=== PATIENT | male | born 1980 | race Two or more races ===

== ENCOUNTER 2020-09-28 16:47 | Emergency (ER) | payer OTHER ==
[~2020-09-28] VITALS: Ht 177.8 cm; Wt 104.3 kg
[2020-09-28 17:02] VITALS: BP 126/77
[2020-09-28] MEDS ORDERED: PRED50TA PO (17:26)
[2020-09-28] MEDS ORDERED: ALLO300T2 PO (17:26)
[2020-09-28] MEDS ORDERED: COLC0.6C3 PO (17:26)
--- NOTE | 2020-09-28 17:28 | NUR ---
SEEN AND EXAMINED BY VANDANA DE OLIVEIRA NP.
[2020-09-28] MEDS ORDERED: [UNRECOGNIZED DRUG - SUPPLY] BC (17:30)
[2020-09-28] MEDS ORDERED: KETOROLAC TROMETHAMINE INJ 60 MG/2 ML VIAL IM ONE (17:30)
[2020-09-28] MEDS ORDERED: [UNRECOGNIZED DRUG - SUPPLY] (17:30)
[2020-09-28] MEDS ORDERED: KETOROLAC TROMETHAMINE INJ 30 MG/ML VIAL ONE (17:30)
--- NOTE | 2020-09-28 17:37 | NUR ---
Patient discharged to home in stable condition. Written and verbal after care instructions given. Patient verbalizes understanding of instruction.
== END 2020-09-28 17:38 | disposition home or self-care (01) ==
LOC: ER 17:07
DX: M10.071 Idiopathic gout, right ankle and foot (principal); F41.9 Anxiety disorder, unspecified; F32.9 Major depressive disorder, single episode, unspecified; G89.29 Other chronic pain; Z76.0 Encounter for issue of repeat prescription; Z98.890 Other specified postprocedural states; Z88.8 Allergy status to other drugs, medicaments and biological substances; Z79.899 Other long term (current) drug therapy
CPT/HCPCS: 96372; 99283; J1885